=== PATIENT | female | born 1955 | race Caucasian/White ===

== ENCOUNTER → 2024-01-07 14:26 | Outpatient (BNVA) | payer SELFPAY | PROVIDERS: PCP Nurse Practitioner Family; Visit Provider Physician Assistant ==

== ENCOUNTER 2024-05-06 08:09 | Day surgery (SDC) | payer MEDICARE, SELFPAY ==
--- NOTE | 2024-05-05 11:51 | P.CONAN_ITS ---
Documented by User: Britany Cárdenas NP 05/05/24 11:52 HPI - Anesthesia Eval Consult details Narrative: 68yo F for Colonoscopy [facility] Active Problems Active Problems: All Active Problems Encounter for screening colonoscopy (Acute) Family History Family History Brother Throat cancer Mother Breast cancer Brother Lung cancer Father Bladder cancer Surgical History Surgical History H/O skin graft H/O colonoscopy Social History Social History (Updated 01/07/24 @ 15:00 by Josephine Nunez PA-C) Alcohol intake: current Alcohol intake frequency: holidays/special occasions only Patient Tobacco Use Status: Never used Tobacco Current occupational status: employed Meds Allergies Allergy/AdvReac Type Severity Reaction Status Date / Time Penicillins Allergy Severe Anaphylaxis Verified 05/06/24 09:00 Home Medications ?Medication ?Instructions ?Recorded ?Confirmed ?Last Taken ?Type aspirin 81 mg tablet,delayed 81 mg PO DAILY 01/07/24 05/06/24 Unknown History release atorvastatin 10 mg tablet 10 mg PO DAILY 01/07/24 05/06/24 Unknown History Assessment and Plan Assessment Anesthesia Assessment: Chart Reviewed Documented by User: Mita Diallo MD 05/06/24 10:04 [facility] Family History Family History Brother Throat cancer Mother Breast cancer Brother Lung cancer Father Bladder cancer Family history of problems with anesthesia: No Surgical History Surgical History H/O skin graft H/O colonoscopy History of Problems with Anesthesia: No Social History Social History (Updated 01/07/24 @ 15:00 by Josephine Nunez PA-C) Alcohol intake: current Alcohol intake frequency: holidays/special occasions only Patient Tobacco Use Status: Never used Tobacco Current occupational status: employed Meds Allergies Allergy/AdvReac Type Severity Reaction Status Date / Time Penicillins Allergy Severe Anaphylaxis Verified 05/06/24 09:00 Home Medications ?Medication ?Instructions ?Recorded ?Confirmed ?Last Taken ?Type aspirin 81 mg tablet,delayed 81 mg PO DAILY 01/07/24 05/06/24 Unknown History release atorvastatin 10 mg tablet 10 mg PO DAILY 01/07/24 05/06/24 Unknown History Exam Airway Mallampati Class: II TM Dist: >3cm Neck ROM: Full Assessment and Plan Assessment Anesthesia Assessment: Anesthesia Plan Discussed Final Anesthetic Review Family History of Problems with Anesthesia: No History of Problems with Anesthesia: No NPO: Yes ASA Class: II Final Preanesthetic Review: No Changes in Pt Med Stat, Meds/Allgs Chart Reviewed, Consent Obtained/Reviewed and Anes Risks/Benef Reviewed Patient Risk: Intermediate Procedure Risk: Low Anesthetic Plan Anesthetic Plan: TIVA Disposition: Standard PACU
[2024-05-06 08:48] VITALS: BMI 21.6
[2024-05-06 08:54] VITALS: BP 152/82; PULSE 76; RESP 18; TEMP 36.1; O2SAT 98
--- NOTE | 2024-05-06 09:05 | MHC.SHP ---
Pre-Procedural Eval Section A - 24 Hr Update-Section A only Date of Service: 05/06/24 Section B - Complete if H&P > 30 days Chief Complaint: Encounter for screening for malignant neoplasm of Relevant Family History (Specify if Yes): No Relevant Social History: None Present Medications: see Short Stay Collaborative assessment Medical History: Significant History (hyperlipidemia ) History of Previous Operations: Relevant previous surgery/procedure and date(s) (H/O skin graft H/O colonoscopy) Allergies: Allergies Allergy/AdvReac Type Severity Reaction Status Date / Time Penicillins Allergy Severe Anaphylaxis Verified 05/06/24 09:00 Review of Systems Sugical H&P ROS: Negative: Constitution, Cardiovascular, Respiratory, Neurological, Psychiatric, Hem-Onc, Allergic/Immunologic, Gastrointestinal, Genitourinary, Musculoskeletal, Integumentary, Endocrine and Eyes/Ears/Nose/Throat Exam Surgical H&P Exam: Normal: HEENT, Normal: Heart, Normal: Lungs, Normal: Extremities, Normal: Abdomen, Normal: Skin and Normal: Neurological Plan Diagnosis/Plan: Unchanged I have reviewed the history and physical and performed a pertinent physical examination on my patient. No changes have occurred unless specified. Time Spent With Patient Time: Total time managing care of this patient today ____ minutes.
[2024-05-06] MEDS: Lactated Ringers 1,000 ML 100 ML IVCONT (09:09)
--- NOTE | 2024-05-06 09:42 | HO.OPN-COLON ---
Colonoscopy Operative Note Operative Note Date of Service: 05/06/24 Narrative: Operative Information Procedure Description: Colonoscopy Indication: screening Anesthesia: MAC COLONOSCOPY Instrument: Olympus variable stiffness pediatric scope 190L Colonoscopy Monitoring: Vital signs and clinical assessment, continuous EKG monitoring, Pulse oximetry, Carbon Dioxide monitoring and blood pressure monitoring were done throughout the procedure. Colon withdrawal time was 6 minutes. Procedure: The patient was placed in the left lateral decubitis position and pre-procedure medications were administered. After a digital rectal examination of the ano-rectum, the video colonoscope was inserted into the rectum and advanced through the colon to the cecum/TI. The colonoscope was slowly withdrawn in a retrograde panoramic fashion and the colon mucosa was carefully examined including a retroflexed view of the rectum. Findings and interventions are described below. Procedure Difficulty: moderate Findings: Terminal Ileum-normal Cecum:normal Ascending Colon: scattered diverticula Transverse Colon -normal Descending Colon:normal Sigmoid Colon: moderate severe diverticulosis Rectum: Retroflexion with small to medium internal hemorrhoids seen, grade I Anorectum - normal Intervention: none Colon preparation: [place] Bowel Preparation Scale Right colon; 2 Transverse colon: 2 Left colon; 2 (0 = Unprepared colon segment with mucosa not seen due to solid stool that cannot be cleared. 1 = Portion of mucosa of the colon segment seen, but other areas of the colon segment not well seen due to staining, residual stool and/or opaque liquid. 2 = Minor amount of residual staining, small fragments of stool and/or opaque liquid, but mucosa of colon segment seen well. 3 = Entire mucosa of colon segment seen well with no residual staining, small fragments of stool or opaque liquid) Impression and Post Procedure Diagnosis: diverticulosis internal hemorrhoids Plan: High fiber diet leaflet Avoid straining at stool, epsom salts and sitz bath, anusol supps or cream Repeat Colonoscopy in 10 years or earlier if clinically indicated Above findings were reviewed with the patient and relevant handouts were provided if indicated.
[2024-05-06 10:21] VITALS: BP 117/66; PULSE 72; RESP 15; TEMP 36.3; O2SAT 97
[2024-05-06 10:36] VITALS: BP 134/56; PULSE 64; RESP 18; TEMP 36.6; O2SAT 98
== END 2024-05-06 12:04 | disposition home or self-care (01) ==
PROVIDERS: PCP Nurse Practitioner Family; Visit Provider Internal Medicine Gastroenterology
PROC: 0DJD8ZZ Inspection of Lower Intestinal Tract, Via Natural or Artificial Opening Endoscopic (ICD-10-PCS; CPT 45378; principal; 2024-05-06 10:00)
DX: Z12.11 Encounter for screening for malignant neoplasm of colon (principal); K57.30 Diverticulosis of large intestine without perforation or abscess without bleeding; K64.0 First degree hemorrhoids; E78.5 Hyperlipidemia, unspecified; Z79.82 Long term (current) use of aspirin; Z79.899 Other long term (current) drug therapy; Z88.0 Allergy status to penicillin
CPT/HCPCS: G0121; J2704

== ENCOUNTER → 2024-05-06 08:09 | Outpatient (BNV) | payer MEDICARE, SELFPAY | PROVIDERS: PCP Nurse Practitioner Family; Visit Provider Internal Medicine Gastroenterology | DX: Z12.11 Encounter for screening for malignant neoplasm of colon (principal); K57.90 Diverticulosis of intestine, part unspecified, without perforation or abscess without bleeding; K64.0 First degree hemorrhoids | CPT/HCPCS: G0121 ==